=== PATIENT | male | born 1975 | race Caucasian/White ===

== ENCOUNTER 2025-02-02 13:51 | Outpatient (CLI) | payer OTHER, SELFPAY | END 2025-02-02 13:52 | disposition home or self-care (01) | LOC: NFLDUCREF 13:52 | PROVIDERS: Visit Provider Physician Assistant Surgical | DX: L08.9 Local infection of the skin and subcutaneous tissue, unspecified (principal) | CPT/HCPCS: 87070; 87186 ==

== ENCOUNTER 2025-02-04 13:44 | Emergency (ER) | payer OTHER, SELFPAY ==
--- OUTSIDE RECORDS SUMMARY | 2025-02-04 13:46 | XMS_ITS | Clinical Summary ---
Author Organization [facility] Address [address] [place] [address] Care Team Providers Care Body Welder Name Role Phone Andreea Gimenez MD Primary Care Provider [phone] Eileen Dejesus MD Unavailable + Ruth Mcdaniel MD Unavailable Ibeth Collazo NP Unavailable Susan Servin MD Unavailable [phone] Allergies Active Allergy Reactions Criticality Noted Date Comments Covid-19 Vaccine, Mrna, [id number], Lnp-S (Moderna) Congestive Heart Failure High 05/12/2021 Erythromycin Nausea Only 09/27/2006 Medications loperamide (IMODIUM A-D) 2 mg tablet 2 times daily if needed for Diarrhea. Take 4mg by mouth with 1st loose stool, then 2mg with each subsequent loose stool. Max 16 mg in 24 hrs 0 04/21/20 11 Active calcium polycarbophiL (FIBERCON) 625 mg tablet Take 1 tablet by mouth 2 times daily. 0 04/21/20 11 Active HYDROcodone-acetam inophen, 10-325 mg, (NORCO 10-325) 10-325 mg per tablet Take 1 Tablet by mouth 2 times daily. Dose is based on hydroxycodone amount, 1 tablet = 10mg. Max acetaminophen 4000mg in 24 hours. Active CPAPIndications:OS A (obstructive sleep apnea) CPAP machine for home use at pressure 4-15cm/H2O, nasal mask x1/3month with nasal cushion x2/mo 1 Each 3 03/19/20 22 Active busPIRone (BUSPAR) 10 mg tabletIndications: MINE (generalized anxiety disorder) Take 1 Tablet (10 mg) by mouth two times daily. 180 Tablet 3 10/20/19 24 Active carvediloL (COREG) 12.5 mg tabletIndications: Acute systolic heart failure (HC) Take 1 Tablet (12.5 mg) by mouth two times daily. 180 Tablet 3 04/09/20 24 Active amLODIPine (NORVASC) 10 mg tabletIndications: Acute systolic heart failure (HC) Take 1 Tablet (10 mg) by mouth once daily. 90 Tablet 3 05/24/20 24 Active apixaban (Eliquis) 5 mg tabletIndications: History of DVT (deep vein thrombosis),Acute systolic heart failure (HC) Take 1 Tablet (5 mg) by mouth two times daily. 180 Tablet 3 06/04/20 24 Active sacubitril-valsart an (ENTRESTO 97 MG-103 MG TABLET) 97-103 mg tabletIndications: Acute systolic heart failure (HC) Take 1 Tablet by mouth two times daily. 180 Tablet 3 09/10/19 25 Active sildenafil citrate (VIAGRA) 100 mg tabletIndications: Type 2 diabetes mellitus without complication, without long-term current use of insulin (HC) Take 1 Tablet (100 mg) by mouth once daily if needed for Erectile Dysfunction. Take 30 minutes to 4 hours before sexual activity. Max 100mg/24hr. 30 Tablet 11 09/27/19 25 Active DULoxetine 60 mg Delayed-release capsuleIndications :MINE (generalized anxiety disorder),Chronic musculoskeletal pain TAKE 1 CAPSULE(60 MG) BY MOUTH DAILY 90 Capsule 1 10/27/19 25 Active gabapentin 300 mg capsuleIndications :Leg cramps,Neuropathic pain TAKE 1 CAPSULE BY MOUTH EVERY MORNING AND 1-2 CAPSULES BY MOUTH EVERY NIGHT AT BEDTIME 270 Capsule 11/18/19 25 Active colchicine 0.6 mg tabletIndications: Leukocytoclastic vasculitis (HC) Take 1 Tablet (0.6 mg) by mouth two times daily. 180 Tablet 1 12/06/19 25 Active metFORMIN 500 mg Extended-Release tabletIndications: Type 2 diabetes mellitus without complication, without long-term current use of insulin (HC) Take 2 Tablets (1,000 mg) by mouth once daily with evening meal. 180 Tablet 12/30/19 25 Active allopurinoL 300 mg tabletIndications: Gout of both feet TAKE 1 TABLET BY MOUTH EVERY DAY 90 Tablet 01/01/20 25 Active CPAPIndications:OS A (obstructive sleep apnea) RESMED CPAP (E0601) machine for home use at pressure: 4-15cm/H2O , Choice of mask (A7030 or A7034) w/full face cushion (A7031) x1-2/mo, nasal cushion (A7032) x2/mo, or nasal pillows (A7033) x 2/mo; Length of Need: 99 months; Frequency of use: Daily 1 Each 3 01/09/20 25 Active empagliflozin (Jardiance) 10 mg tabletIndications: Chronic HFrEF (heart failure with reduced ejection fraction) (HC) Take 1 Tablet (10 mg) by mouth once daily. Stop taking Dapagliflozin (Farxiga) when you start this. 90 Tablet 3 01/11/20 25 Active dapagliflozin propanediol (Farxiga) 10 mg tabletIndications: Acute systolic heart failure (HC) Take 1 Tablet (10 mg) by mouth once daily. 90 Tablet 3 06/04/20 24 025 Disconti nued(*Av ailabili ty/Arnoldou william change/C ost of medicati on) Active Problems Problem Noted Date Diagnosed Date Long-term current use of rituximab 05/29/2024 History of gout 05/29/2024 History of ulcerative colitis 05/29/2024 Overview (09/27/2024): diagnosed in 2006 in [place] (Dr. Perez) 2007 colon biopsy consistent with chronic ulcerative colitis at [place] S/p colectomy at [place] in 2006 Type 2 diabetes mellitus wit hout complication, without long-term current use of insulin 10/20/2023 Nonischemic cardiomyopathy 12/10/2021 Overview (09/27/2024): 11/2020 echocardiogram: EF 18% in setting of rapid atrial fibrillation 06/2023 echocardiogram: EF 55% Paroxysmal atrial fibrillation 12/10/2021 Essential hypertension 12/10/2021 Obstructive sleep apnea 12/09/2021 Chronic pain 11/30/2020 Primary sclerosing cholangitis 10/29/2020 Sjogren's syndrome with keratoconjunctivitis sic ca 07/03/2020 Leukocytoclastic vasculitis 02/05/2020 Lumbar disc herniation L4-5 & L5-S1 01/19/2018 Low back pain radiating to right leg 12/22/2017 Social anxiety disorder 06/13/2017 Overview (06/13/2017): over the holidays getting together with family advised to use ativan sparingly Fatty liver 05/04/2017 Rheumatoid arthritis involving multiple joints 0 12/21/2014 History of deep venous thrombosis 12/13/2006 Overview (09/27/2024): With pulmonary embolism Chronic diarrhea due to colectomy 11/01/2006 Ulcerative pancolitis with complication 09/27/19 07 Pulmonary embolism on right Overview (09/27/2024): First associated with immobilization from ulcerative colitis surgery 2006, then in association with lengthy air travel 2008 Resolved Problems Problem Noted Date Diagnosed Date Resolved Date Seropositive rheumatoid arthritis 05/29/2024 09/27/2024 Leucocytoclastic vasculitis 05/29/2024 09/27/2024 Iron deficiency anemia 12/16/202012/09 Acute tubular necrosis 12/05/202012/[address] flut ter with rapid ventricular response on 12/03/2020 12/03/202009/27 Gout 11/30/2020 09/27/2024 Anticoagulation monitoring, INR range 2-3 04/30/2014 05/04/2017 Ulcerative colitis, unspecified 11/14/2006 12/24/2006 Celiac disease 11/14/2006 12/24/2006 Iron deficiency anemia, unspecified 11/14/2006 12/24/2006 Unspecified diseases of bloo d and blood-forming organs 11/14/2006 05/04/2017 Leukocytosis, unspecified 11/14/2006 Nausea with vomiting 11/14/2006 007 TWO SOFT TISSUE DENSITIES IN RIGHT KIDNEY 11/05/2006 04/27/2019 Overview (11/05/2006): seen on 11/[address] Likely benign complex cysts, but need follow up ct in 3 months to ensure stability. MALNUTRITION 11/03/2006 05/04/2017 Nausea with vomiting 11/01/2006 011 Hyposmolality and/or hyponatremia 10/09/2006 11/01/2006 Dysuria 10/09/2006 11/01/2006 CLOSTRIDIUM DIFFICILE COLITIS 09/30/2006 11/01/2006 Overview (10/09/2006): diagnosed late Sep 2006, hospitalized 09/27-10/01/06 at [facility] Dehydration 09/30/2006 11/01/2006 Iron deficiency anemia, unspecified 09/30/2006 05/04/2017 Celiac disease 09/27/2006 05/19/2011 Overview (09/27/2006): diagnosed with celiac sprue in 08/07 (biopsy in 08/07) ; on gluten free diet Acute systolic heart failure 12/09/2021 Encounters Date Type Department Care Team Description 02/02/2025 Travel 01/10/2025 Telephone [facility] [address] [place] [id number] Eileen Dejesus MD Medication Management (SGLT2i change) 01/07/2025 Telephone [facility] [address] [place] [address] Charli Stanley MD DME Supply 01/07/2025 Travel 12/30/2024 Refill [facility] [address] [place] [address] Bonnie Caal NP Refill Request (Allopurinol) 12/28/2024 Refill [facility] [address] [place] [address] Andreea Gimenez MD Refill Request (Metformin) 12/18/2024 2:30 PM CDT Office Visit [facility] [address] [facility] [address] [place] [address] Susan Servin MD Follow Up 12/18/2024 Travel 12/13/2024 Travel 12/05/2024 Patient Outreach [facility] Care Management - Advanced Care Team [address] [place] [address] Tammy Vaughn Complex Care Management (CCM Engagement Outreach) 11/24/2024 6:04 PM CDT - 11/24/2024 7:21 PM CDT Emergency [facility] [address] [place] [address] Morgan Schmitt PA Laceration of right index finger without foreign body without damage to nail, initial encounter (Primary Dx) Discharge Disposition: Home Self Care 11/24/2024 Travel 11/22/2024 10:37 AM CDT - 11/22/2024 11:59 PM CDT Hospital Encounter [facility] [address] [place] [address] Leukocytoclastic vasculitis (HC) (Primary Dx); Rheumatoid arthritis involving multiple joints (HC); Sjogren's syndrome with keratoconjunctivitis sicca (HC) 11/22/2024 Travel 11/18/2024 Refill [facility] [address] [place] [address] Andreea Gimenez MD Refill Request (Gabapentin) 11/16/2024 Refill [facility] [address] [place] [address] Bonnie Caal NP Refill Request (Gabapentin) 11/15/2024 Hospital/[facility] Telephone Encounter [facility] [address] [place] [address] Marcella De Los Santos RN Pre Procedure (PVP) 11/08/2024 10:36 AM CDT - 11/08/2024 11:59 PM CDT Hospital Encounter [facility] [address] [place] [address] Leukocytoclastic vasculitis (HC) (Primary Dx); Rheumatoid arthritis involving multiple joints (HC); Sjogren's syndrome with keratoconjunctivitis sicca (HC) 11/08/2024 Travel from Last 3 Months Immunizations Immunization Administration Dates Next Due COVID-19 vaccine (Moderna 100mcg/0.5mL) PF, MDV 10/31/2020 Influenza, IIV3 (Age 6-35 mos) 04/26/2009 Influenza, IIV3 (Age >=3 years) 03/25/20 12,04/08/2011,03/30/2010,2007 Influenza, IIV4 05/17/2016 Influenza, IIV4 (=>6mos) MDV 05/17/2016 Tdap 11/24/2024,03/30/2010,02/06/2009 Family History Medical History Relation Name Comments Alzheimer's disease Father Diabetes Father Good Health Mother Heart Disease Sister 1 Multiple medic al problems Relation Name Status Comments Brother 1 Alive Brother 2 Alive Brother 3 Alive Father Mother Alive Sister 1 Alive Sister 2 Alive Sister 3 Alive Social History Tobacco Use Types Packs/Day Years Used Date Smoking Tobacco: Former Cigarettes Smokeless Tobacco: Never Tobacco Cessation:Counseling Given: Not Answered Comments:quit in 2002; smoked 1/2 ppd Alcohol Use Standard Drinks/Week Comments Never 0 (1 standard drink = 0.6 oz pur e alcohol) PHQ-2 Answer Date Recorded PHQ-2 TOTAL SCORE 0 09/27/2024 Financial Resource Strain Answer Date R ecorded Difficulty of Paying Living Expenses Not on file 08/01/2021 Difficulty of Paying Living Expenses Not on file 08/01/2021 Interpersonal Safety Answer Date Record ed Are you being hit, kicked, p ushed or yelled at (see row info)? 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 Not on file Not on file Obstetrics History Last Filed Vital Signs Vital Sign Reading Time Taken Comments Blood Pressure 104/62 12/18/2024 2:30 PM CDT Pulse 90 12/18/2024 2:30 PM CDT Temperature 36.8 C (98.2 F) 11/24/2024 6:12 PM CDT Respiratory Rate 24 11/24/2024 6:12 PM CDT Oxygen Saturation 96% 12/18/2024 2:30 PM CDT Inhaled Oxygen Concentration - - Weight 122.1 kg (269 lb 3.2 oz) 12/18/2024 2:30 PM CDT Height 180.3 cm (5' 11) 12/18/2024 2:30 PM CDT Body Mass Index 37.55 12/18/2024 2:30 PM CDT Plan of Treatment Upcoming Encounters Date Type Department Care Team (Late st Contact Info) Description 02/06/2025 3:25 PM CDT Office Visit [facility] [address] [place] [address] Andreea Gimenez MD [address] [place] [address] 04/19/2025 8:20 AM CDT Orders Only [facility] [address] [facility] [address] [place] [address] 04/26/2025 11:00 AM CDT Appointment [facility] [address] [place] [address] 04/30/2025 3:00 PM CDT Office Visit [facility] [address] [place] [address] Charli Stanley MD [address] [place] [address] 05/10/2025 10:00 AM CDT Appointment [facility] [address] [place] [address] 05/20/2025 2:30 PM CDT Office Visit [facility] [address] [facility] [address] [place] [address] [place] [address] [place] [address] Health Maintenance Due Date Last Done Comments Hepatitis B series for 19+ ( 1 of 3 - 19+ 3-dose series) 1995 Pneumococcal series for age 6-49 (1 of 2 - PCV) 1995 COVID-19 vaccine series (2 - Moderna risk series) 11/28/2020 10/31/2020 Influenza Vaccine (#1) 2025 6, 05/17/2016, 03/25/2012, Additional history exists Depression screening for age 12+ 09/27/2025 09/27/2024, 12/09/2021, 08/15/2020, Additional history exists BMI (ht and wt on same day) for age 18+ 12/18/2025 12/18/2024, 09/27/2024, 08/23/2024, Additional history exists Lipids for age 45-75 09/27/2029 09/27/2024, 09/03/2022, 01/09/2014, Additional history exists Tetanus booster 11/24/2034 11/24/2024, 03/03 (Completed outside of [facility]), 03/30/2010, Additional history exists HIV for age 15-65 Completed 11/30/2020 Hepatitis C screening for ag e 18-79 Completed 04/23/2024, 11/18/2021, 07/03/2020, Additional history exists Medical Devices Implanted Type Area Fashion Styling Intern Device Identifier Shelf Expiration Date Model / Serial / Lot Stent Pancreatic [id number] Geenen Sof-Flex No Flap - [id number] Implanted:Qty: 1 on 08/21/2020 by Anam Leonardo MD at [facility] 01/30/2023 GPSOS-SF-5 - 3 / / [id number] Procedures Procedure Name Priority Date/Time Associated Diagnosis Comments LACERATION REPAIR Routine 11/24/2024 7:0 8 PM CDT LIPID PANEL W REFLEX MEASURED LDL Routine 09/27/2024 5:25 PM NURSE FIRST ASSIST Type 2 diabetes mellitus without complication, without long-term current use of insulin (HC) ANTI HCV Routine 04/23/2024 12:00 AM CDT Elevated LFTs ANTI HIV /2 Today 11/30/2020 4:53 PM CDT from Last 3 Months or Most Recently Relevant to Health Maintenance Results * LACERATION REPAIR (11/24/2024 7:08 PM CDT) Narrative Morgan Schmitt PA - 11/24/2024 7:08 PM CDT Morgan Schmitt PA 11/24/2024 7:10 PM LACERATION REPAIR Date/Time: 11/24/2024 7:08 PM Performed by: Morgan Schmitt PA Authorized by: Morgan Schmitt PA Consent: Consent obtained: Verbal Consent given by: Patient Risks discussed: Infection Alternatives discussed: Observation Thornton protocol: Procedure explained and questions answered to patient or proxy's satisfaction: yes Patient identity confirmed: Verbally with patient Anesthesia: Anesthesia method: Local infiltration Local anesthetic: Lidocaine 1% w/o epi Laceration details: Location: Finger Finger location: R index finger Length (cm): 2 Depth (mm): 1 Pre-procedure details: Preparation: Patient was prepped and draped in usual sterile fashion Exploration: Limited defect created (wound extended): yes Hemostasis achieved with: Direct pressure Contaminated: no Treatment: Area cleansed with: Povidone-iodine Amount of cleaning: Standard Debridement: None Skin repair: Repair method: Sutures Suture size: 4-0 Suture material: Nylon Suture technique: Simple interrupted Number of sutures: 2 Approximation: Approximation: Close Repair type: Repair type: Simple Post-procedure details: Dressing: Antibiotic ointment and adhesive bandage Procedure completion: Tolerated Morgan MAGUIRE PROCEDURE ORD Reyna l Result * (ABNORMAL) LIPID PANEL W REFLEX MEASURED LDL (09/27/2024 5:25 PM NURSE FIRST ASSIST) CHOLESTEROL, TOTAL 180 <200 mg/dL [facility] HDL CHOLESTEROL 25(L) > OR = 40 mg/dL [facility] TRIGLYCERIDES 281(H) <150 mg/dL [facility] Comment: If a non-fasting specimen was collected, consider repeat triglyceride testing on a fasting specimen if clinically indicated. Mary et al. J. of Clin. Lipidol. 2015;9:129-169. LDL-CHOLESTEROL 115(H) mg/dL (calc) [facility] Comment: Reference range: <100 Desirable range <100 mg/dL for primary prevention; <70 mg/dL for patients with CHD or diabetic patients with > or = 2 CHD risk factors. LDL-C is now calculated using the Amando-Lopez calculation, which is a validated novel method providing better accuracy than the Friedewald equation in the estimation of LDL-C. Amando SS et al. TASHIA. 2013;310(19): 0863-8839 (http://education.Gura Gear/faq/GDD720) CHOL/HDLC RATIO 7.2(H) <5.0 (calc) [facility] NON HDL CHOLESTEROL 155(H) <130 mg/dL (calc) [facility] Comment: For patients with diabetes plus 1 major ASCVD risk factor, treating to a non-HDL-C goal of <100 mg/dL (LDL-C of <70 mg/dL) is considered a therapeutic option. Blood BLOOD SPECIMEN / Unknown 09/27/2024 5:25 PM NURSE FIRST ASSIST 09/27/2024 5:26 PM NURSE FIRST ASSIST Narrative [facility] - 09/28/2024 2:17 AM NURSE FIRST ASSIST FASTING:NO FASTING: NO Andreea Gimenez MD CHEMISTRY Final Res ult [facility] [address] [place] [address], [facility] [address] [place] [address] * (ABNORMAL) ANTI HCV (04/23/2024 12:00 AM CDT) HEPATITIS C ANTIBODY REACTIVE( A) NON-REACT NAHUM [facility] Comment: Based on this result, the sample will be tested for HCV RNA by a Nucleic Acid Amplification Test (NAAT) to determine if the patient has a current active infection. Blood BLOOD SPECIMEN / Unknown 04/23/2024 04/23/2024 3:33 PM CDT Susan Servin MD SEND OUTS Fin al Result Performing Organization Address City/[facility]/ZIP Co de Phone Number [facility] [address] [place] [address], [place] [phone] [facility] [address] [place] [address] * ANTI HIV 1/2 (11/30/2020 4:53 PM CDT) HIV-1/HIV-2 ANTIBODY Non-Reacti ve Non-Reacti ve 11/30/2020 5:50 PM CDT [facility] Comment:HIV-1 p24 and HIV-1/ HIV-2 Ab not detected. Blood BLOOD SPECIMEN / Unknown Venipuncture / Unknown 11/30/2020 4:53 PM CDT 11/30/2020 5:05 PM CDT Frankie Pulliam MD SEND OUTS Fin al Result Performing Organization Address City/[facility]/ZIP Co de Phone Number [facility] [address] [place] [address], from Last 3 Months or Most Recently Relevant to Health Maintenance Insurance [employer] APPLAUSE [place] [id number] [employer] INSULATION SUPERVISOR * Guarantor: STEPHAN DUFF Account Type Relation to Patient Date of Phone Billing Address Occ Health/Mable OF 08/11/10 -[id number] [place] [address] ATTN ACCTS PAYABLE 2 [address] [id number] Advance Directives * Full Code (Latest Code Status on File) Date Activated Date Inactivated Comments 11/30/2020 6:22 PM 12/10/2020 6:45 PM Question Answer Comments Code Status Discussion: Discussed * Full Code Date Activated Date Inactivated Comments 08/21/2020 10:06 AM 08/21/2020 6:34 PM Question Answer Comments Code Status Discussion: Discussed * Full Code Date Activated Date Inactivated Comments 08/21/2020 10:06 AM 08/21/2020 10:06 AM Question Answer Comments Code Status Discussion: Discussed * Full Code Date Activated Date Inactivated Comments 11/02/2006 12:27 PM 11/05/2006 1:55 PM * Full Code Date Activated Date Inactivated Comments 11/01/2006 8:51 PM 11/02/2006 12:27 PM Care Teams Body Welder Relationship Specialty Start Date End Date Andreea Gimenez MD [address] [place] [address] PCP - General Internal Medicine 05/04/17 Eileen Dejesus MD [address] [facility] [address] [place] [address] Cardiology - CHF Cardiovascular Disease 01/15/21 Ruth Mcdaniel MD [address] [place] [address] Hematology and Oncology 12/22/21 Ibeth Collazo, AMBER [address] [place] [address] Hematology and Oncology 12/22/21 [place] [address] [place] [address] Rheumatology 08/07/24
[2025-02-04 14:05] VITALS: BP 131/80; PULSE 106; RESP 20; TEMP 36.8; O2SAT 97; BMI 37.2
--- NOTE | 2025-02-04 17:14 | CRLHL7_ITS ---
For Patients: As a result of the Century Cures Act, medical imaging exams and procedure reports are released immediately into your electronic medical record. You may view this report before your referring provider. If you have questions, please contact your health care provider. Indication: eval for FB location, STEPPED ON SOMETHING ABOUT A WEEK AGO, PT IS GETTING WORSE Technique: Three views of the left foot. Comparison: 02/02/2025. Findings: No acute displaced fracture or malalignment. Mild soft tissue swelling of the plantar aspect of the hindfoot. 5 millimeter thin radiopaque foreign body is seen in the superficial plantar soft tissues of the hindfoot; is difficult to determine the exact position of the foreign body due to overlapping bone on the AP view; however, the oblique views suggest that this is in the lateral aspect of the foot. Impression: 5 millimeter thin radiopaque foreign body is seen in the superficial plantar soft tissues of the hindfoot; is difficult to determine the exact position of the foreign body due to overlapping bone on the AP view; however, the oblique views suggest that this is in the lateral aspect of the foot. Dictated by Deep Sotelo MD @ 02/04/2025 6:13:56 PM (Electronically Signed)
--- NOTE | 2025-02-04 17:27 | ED.GENADULT ---
HPI - General Adult General Date Seen: 02/04/25 Chief complaint: Extremity Pain/Injury, Lower Stated complaint: Left foot red going up leg Time Seen by Provider: 02/04/25 17:07 History of Present Illness HPI narrative: Patient is a 49-year-old male, who was seen in urgent care yesterday due to pain in his left heel. He says he received a call after he left saying that there was a piece of metal in his foot. He notes that he was referred to Podiatry, thought he was going to get a call to be scheduled to see them today but never received a call. His heel is feeling more painful today. No fevers or systemic complaints. He isn't exactly sure when he would have gotten something in his heel, he says he was breaking in a new pair of work boots and so both heels were painful but then the right got better while the left got worse. At some point his noted a small dot on the bottom of his foot, so he went after with a needle, and then ended up where he is now. Related Data Home Medications ?Medication ?Instructions ?Recorded ?Confirmed amiodarone 200 mg tablet 200 mg PO DAILY 03/24/23 02/04/25 amlodipine 10 mg tablet 10 mg PO DAILY 03/24/23 02/04/25 apixaban 5 mg tablet (Eliquis) 5 mg PO BID 03/24/23 02/04/25 buspirone 10 mg tablet 10 mg PO BID 03/24/23 02/04/25 carvedilol 12.5 mg tablet 12.5 mg PO BID 03/24/23 02/04/25 colchicine 0.6 mg tablet 0.6 mg PO BID 03/24/23 02/04/25 dapagliflozin propanediol 10 mg 10 mg PO DAILY 03/24/23 02/04/25 tablet (Farxiga) duloxetine 60 mg capsule,delayed 60 mg PO DAILY 03/24/23 02/04/25 release gabapentin 300 mg capsule 300 mg PO 3XD 03/24/23 02/04/25 sacubitril 97 mg-valsartan 103 mg 1 tab PO BID 03/24/23 02/04/25 tablet (Entresto) sildenafil 50 mg tablet 50 mg PO DAILY PRN intercourse 03/24/23 02/04/25 allopurinol 300 mg tablet 300 mg PO DAILY 02/04/25 02/04/25 empagliflozin 10 mg tablet 10 mg PO DAILY 02/04/25 02/04/25 (Jardiance) metformin 500 mg tablet,extended 500 mg PO BID 02/04/25 02/04/25 release 24 hr methocarbamol 500 mg tablet 500 mg PO BID 02/04/25 02/04/25 Previous Rx's ?Medication ?Instructions ?Recorded levofloxacin 750 mg tablet 750 mg PO QDAY 7 days #7 tabs 02/02/25 metronidazole 500 mg tablet 500 mg PO TID 7 days #21 tabs 02/02/25 Allergies Allergy/AdvReac Type Severity Reaction Status Date / Time erythromycin base Allergy Rash Verified 02/04/25 14:03 Review of Systems Status of ROS: Reports: 6 or more systems reviewed and unremarkable except as noted in History and below Exam Narrative: Exam Narrative: Vital signs reviewed, borderline tachycardia noted of unclear clinical significance In general, alert, well-appearing male. Extremities: Examination of the left foot shows no significant swelling, erythema. He does have a small area of purulence on the heel with surrounding tenderness. This is approximately 1 cm in diameter. Const: Vital Signs, click to edit/add: Vital Signs - 24 hr 02/04/25 14:05 Temperature 98.2 F Pulse Rate [Pulse Oximeter] 106 H Respiratory Rate 20 Blood Pressure [Ri ght Upper Arm] 131/80 Pulse Oximetry 97 Oxygen Delivery Me thod Room Air Course Course ED Course: I reviewed the x-rays from yesterday. He has a very small metal filament looking foreign body which I think would be exceedingly difficult to find if it is buried in the tissue of his heel. I am going to repeat the x-ray today to see if it has made its way closer to the surface. If so we may be able to anesthetize the heel and press this up toward the area of purulence. I reviewed the x-rays from today, does look like that piece of metal is closer to the skin although still about half a cm in. His preference was to try and see if we can get that out. Procedure note: I anesthetized the area around the purulence and then made an approximately 1 cm incision. I did express all of the pus, did not see any evidence of the metal shard as I did that. I did a little bit of probing, did not feel anything metallic. I repeated an x-ray just to see if that had maybe come out as the pus came out but it is still there. Discussed with him that I think my ability to find this tiny piece of metal is going to be limited, and that I think we are going to cause more damage by continuing to look for here. He is on antibiotics already. I do not see any evidence of significant cellulitis at this time. The pus has been drained. I did touch base with Dr. Zuleta, he will see him in clinic in the next day or so and can complete that procedure. Reviewed with him that if he is having significant swelling or redness of the foot, fevers etcetera that he should come back to the ER. Vital Signs Vital signs: Initial Vital Signs Temperature 98.2 F 02/04/25 14:05 Temperature Source Temporal Artery Scan 02/04/25 14:05 Pulse Rate 106 H 02/04/25 14:05 Respiratory Rate 20 02/04/25 14:05 Blood Pressure 131/80 02/04/25 14:05 Blood Pressure Mean 97 02/04/25 14:05 Pulse Oximetry 97 02/04/25 14:05 Oxygen Delivery Method Room Air 02/04/25 14:05 Vital Signs Temperature 98.2 F 02/04/25 14:05 Pulse Rate 106 H 02/04/25 14:05 Respiratory Rate 20 02/04/25 14:05 Blood Pressure 131/80 02/04/25 14:05 Pulse Oximetry 97 02/04/25 14:05 Oxygen Delivery Method Room Air 02/04/25 14:05 Temperature 98.2 F 02/04/25 14:05 Pulse Rate 106 H 02/04/25 14:05 Respiratory Rate 20 02/04/25 14:05 Blood Pressure 131/80 02/04/25 14:05 Pulse Oximetry 97 02/04/25 14:05 Oxygen Delivery Method Room Air 02/04/25 14:05 Discharge Plan Discharge Clinical Impression: Acute foreign body of left foot Patient Disposition: Home, Self-Care Condition: Stable Instructions: Soft Tissue Foreign Body (ED) Additional Instructions: Continue your antibiotics as previously prescribed. Dr. Zuleta has your name and they will see you in clinic tomorrow or Tuesday. Someone from his clinic will call you tomorrow. You can use ibuprofen 400 mg plus or minus Tylenol 1000 mg 3 times daily as needed for pain. I would recommend that you stay off your foot as much as possible. For new symptoms such as fevers, significant swelling or redness in the foot or leg, return to the ER. Prescriptions: No Action Entresto 97-103 mg tablet 1 tab PO BID duloxetine 60 mg capsule,delayed release(DR/EC) 60 mg PO DAILY amlodipine 10 mg tablet 10 mg PO DAILY carvedilol 12.5 mg tablet 12.5 mg PO BID colchicine 0.6 mg tablet 0.6 mg PO BID gabapentin 300 mg capsule 300 mg PO 3XD amiodarone 200 mg tablet 200 mg PO DAILY Eliquis 5 mg tablet 5 mg PO BID buspirone 10 mg tablet 10 mg PO BID Farxiga 10 mg tablet 10 mg PO DAILY sildenafil 50 mg tablet 50 mg PO DAILY PRN (Reason: intercourse) metronidazole 500 mg tablet 500 mg PO TID 7 Days Qty: 21 0RF levofloxacin 750 mg tablet 750 mg PO QDAY 7 Days Qty: 7 0RF methocarbamol 500 mg tablet 500 mg PO BID allopurinol 300 mg tablet 300 mg PO DAILY metformin 500 mg tablet extended release 24 hr 500 mg PO BID Jardiance 10 mg tablet 10 mg PO DAILY Follow Up/Referrals: Provider,Not a Local [Primary Care Provider, Family Practice] Stand Alone Forms: MyHealth Info Instructions
--- NOTE | 2025-02-04 18:00 | CRLHL7_ITS ---
For Patients: As a result of the Century Cures Act, medical imaging exams and procedure reports are released immediately into your electronic medical record. You may view this report before your referring provider. If you have questions, please contact your health care provider. INDICATION: Foot injury-stepped on something a week ago TECHNIQUE: Foot radiograph 1 view left COMPARISON: None FINDINGS: Bone: No acute fractures or aggressive bone lesions are identified. Joint: The visualized hindfoot, midfoot, and forefoot joints are unremarkable in appearance. No significant ankle effusion is seen. Soft tissue: There is a 5 mm linear metallic foreign body present in the plantar soft tissues of the hindfoot. IMPRESSIONS: 1. There is a 5 mm linear metallic foreign body present in the plantar soft tissues of the hindfoot. 2. Complete radiographic assessment will require at least an additional orthogonal view. Dictated by Andrea Bae MD @ 02/04/2025 6:22:20 PM Dictated by: Andrea Bae MD @ 02/04/2025 18:22:28 (Electronically Signed)
== END 2025-02-04 18:51 | disposition home or self-care (01) ==
PROVIDERS: Emergency Provider Emergency Medicine
DX: S90.852A Superficial foreign body, left foot, initial encounter (principal)
CPT/HCPCS: 10060; 73620; 73630; 99283; 99284